=== PATIENT | male | born 1965 | race Caucasian/White ===

== ENCOUNTER 2017-11-12 08:04 | Day surgery (SDC) | payer OTHER ==
[~2017-11-12] VITALS: Ht 175.3 cm; Wt 83.5 kg
[~2017-11-12 08:04] MED LIST: ZESTRIL40 MG
== END 2017-11-12 10:11 | disposition home or self-care (01) ==
LOC: ORSCSDS 08:04
PROVIDERS: Surgery
PROC: 0DJD8ZZ Inspection of Lower Intestinal Tract, Via Natural or Artificial Opening Endoscopic (ICD-10-PCS; principal; 2017-11-12 09:30)
DX: Z12.11 Encounter for screening for malignant neoplasm of colon (principal); I10 Essential (primary) hypertension; E78.5 Hyperlipidemia, unspecified; Z86.010 Personal history of colon polyps; Z87.891 Personal history of nicotine dependence; Z79.899 Other long term (current) drug therapy
CPT/HCPCS: J7120

== ENCOUNTER 2018-10-03 13:36 | Day surgery (SDC) | payer OTHER | END 2018-10-03 22:49 | disposition home or self-care (01) | LOC: US 13:36 | DX: M79.89 Other specified soft tissue disorders (principal); Z88.0 Allergy status to penicillin; Z88.2 Allergy status to sulfonamides; Z79.899 Other long term (current) drug therapy | CPT/HCPCS: 38505; 76942 ==

== ENCOUNTER → 2020-02-18 | Outpatient (CLI) | payer OTHER | END | disposition home or self-care (01) | LOC: LAB 12:40 → LAB SHORT 12:40 | DX: N30.01 Acute cystitis with hematuria (principal) | CPT/HCPCS: 87077; 87086; 87186 ==

== ENCOUNTER 2022-04-14 08:16 | Day surgery (SDC) | payer OTHER ==
[~2022-04-14] VITALS: Ht 175.3 cm; Wt 78.6 kg
[~2022-04-14 08:16] MED LIST changes: +Cipro500 MG PO; +PRED20 PO; +PSEUDOEPHEDRINE PO
[2022-04-14] MEDS ORDERED: ACET500 PO (08:34)
--- NOTE | 2022-04-14 09:05 | NUR ---
Ambulatory in Day Surgery History, Chart, Medications and Allergies reviewed before start of procedure. Pre-Op teaching done. Pt verbalizes understanding. Patient States Post-Procedure ride home has been arranged.
--- NOTE | 2022-04-14 12:38 | NUR ---
Discharge instructions reviewed with patient. Patient verbalizes understanding. Copy given to patient to take home. Dressing to procedure site clean, dry, intact with no visible drainage, swelling, erythema or bruising noted. Discharged via wheelchair to private car for ride home.
== END 2022-04-14 12:40 | disposition home or self-care (01) ==
LOC: ORD 08:16 → ORSCMMR 08:17 → ORD 10:00
DX: Z45.2 Encounter for adjustment and management of vascular access device (principal); C82.90 Follicular lymphoma, unspecified, unspecified site
CPT/HCPCS: 77001; C1788; J0690; J1642; J2250; J2704; J3010; J7120

== ENCOUNTER → 2023-01-19 | Outpatient (CLI) | payer OTHER ==
[~2023-01-19] MED LIST changes: +ACET500 PO
== END ==
LOC: LAB SHORT 16:50 → LAB 16:50
DX: R05.9 Cough, unspecified (principal)
CPT/HCPCS: 87070; 87205

== ENCOUNTER → 2023-05-06 | Outpatient (CLI) | payer OTHER | END | disposition home or self-care (01) | LOC: LAB SHORT 08:00 → LAB 08:00 | DX: J18.9 Pneumonia, unspecified organism (principal) | CPT/HCPCS: 87070; 87205 ==

== ENCOUNTER → 2024-03-02 | Outpatient (CLI) | payer OTHER | END | disposition home or self-care (01) | LOC: LAB 11:10 → LAB SHORT 11:10 | DX: R05.1 Acute cough (principal) | CPT/HCPCS: 87070; 87205 ==

== ENCOUNTER → 2024-04-11 | Outpatient (CLI) | payer OTHER | END | disposition home or self-care (01) | LOC: LAB 08:36 → LAB SHORT 08:36 | DX: R05.3 Chronic cough (principal) | CPT/HCPCS: 36415; 87070; 87205 ==

== ENCOUNTER → 2024-04-11 | Outpatient (CLI) | payer OTHER ==
[2024-04-13 07:55] LABS: IMMUNOGLOBULIN G 846 mg/dL (768-1632)
== END ==
LOC: LAB 10:42 → LAB SHORT 10:42
PROVIDERS: Internal Medicine
DX: D80.3 Selective deficiency of immunoglobulin G [IgG] subclasses (principal)
CPT/HCPCS: 82784